=== PATIENT | female | born 1950 | race Caucasian/White ===

== ENCOUNTER 2018-01-11 10:46 | Outpatient (CLI) | payer OTHER ==
[2018-01-11] MEDS ORDERED: MIDAZOLAM 2 MG/2 ML VIAL IVP PRN (11:55)
[2018-01-11] MEDS ORDERED: fentaNYL 100 MCG/2 ML INJ IVP PRN (11:55)
[2018-01-11] MEDS ORDERED: FLUMAZENIL 0.5 MG/5 ML MDV IVP PRN (11:55)
[2018-01-11] MEDS ORDERED: NALOXONE HCL 0.4 MG/ML INJ IVP PRN (11:55)
[2018-01-11] MEDS ORDERED: NS 1,000 ML IV SCH (12:00)
--- NOTE | 2018-01-11 12:48 | PDGENHP ---
History & Physical Chief Complaint: claustrophbia History of Present Illness: back pain, prior lumbar surgery Cardiorespiratory Assessment: heart regular, lungs clear
--- NOTE | 2018-01-11 12:48 | PDPROPOC ---
Sedation Plan of Care Sedation Plan of Care: vital signs stable, mental status noted, patient educated of risks, benefits, alternatives, patient can tolerate sedation ASA Classification: ASA 1 Planned drugs: fentanyl, midazolam Mallampati Score: Class 1 Mallampati Reference Image: Patient passed 3-3-2 rule?: Yes
[2018-01-11] MEDS ORDERED: fentaNYL 100 MCG/2 ML INJ ONE (13:55)
[2018-01-11] MEDS ORDERED: MIDAZOLAM 2 MG/2 ML VIAL ONE (13:56)
[2018-01-11] MEDS ORDERED: ONDANSETRON 4 MG/2 ML VIAL IVP PRN (14:35)
[2018-01-11] MEDS ORDERED: ACETAMINOPHEN 325 MG TAB PO PRN (14:35)
[2018-01-11 15:03] VITALS: BP 89/68
== END 2018-01-11 16:06 | disposition home or self-care (01) ==
LOC: FIMAGING 10:46
PROVIDERS: ATTEND Neurological Surgery
DX: M43.16 Spondylolisthesis, lumbar region (principal); M51.16 Intervertebral disc disorders with radiculopathy, lumbar region; M99.73 Connective tissue and disc stenosis of intervertebral foramina of lumbar region
CPT/HCPCS: 72148; J2250; J3010; J2310